=== PATIENT | female | born 1955 | race Caucasian/White ===

== ENCOUNTER 2020-10-11 22:39 | Emergency (ER) | payer MEDICARE ==
--- NOTE | 2020-10-11 22:43 | ERPHSYRPT ---
- History of Present Illness Time Seen by Provider: 10/11/20 22:43 Source: patient, family Exam Limitations: no limitations Physician History: This is a 65-year-old obese white female who presents with asymptomatic high blood pressure. At home her blood pressure was 170/110. She repeated it and it was approximately the same level. She has had no symptoms. She did take an extra half of her blood pressure medicine benazepril prior to arrival. Again, this patient is asymptomatic. She has no chest pain. She denies shortness of breath. She has no visual changes. She denies headache. Timing/Duration: today, improved Associated Symptoms: denies symptoms Allergies/Adverse Reactions: Sulfa (Sulfonamide Antibiotics) Allergy (Severe, Verified 10/11/20 22:52) Swelling of Face codeine Adverse Reaction (Intermediate, Verified 10/11/20 22:52) Nausea and Vomiting Home Medications: Benazepril HCl 1 tab PO DAILY 10/11/20 [History] Travel Risk - International Travel Have you traveled outside of the country in past 3 weeks: No - Coronavirus Screening Are you exhibiting any of the following symptoms?: No Close contact with a COVID-19 positive Pt in past 14-21 Days: No - Vaccine Status Have you recieved a Covid-19 vaccination: No - Review of Systems Constitutional: No Symptoms Eyes: No Symptoms Ears, Nose, & Throat: No Symptoms Respiratory: No Symptoms Cardiac: No Symptoms Abdominal/Gastrointestinal: No Symptoms Genitourinary Symptoms: No Symptoms Musculoskeletal: No Symptoms Skin: No Symptoms Neurological: No Symptoms Psychological: No Symptoms Endocrine: No Symptoms Hematologic/Lymphatic: No Symptoms Immunological/Allergic: No Symptoms All Other Systems: Reviewed and Negative - Past Medical History Pertinent Past Medical History: Yes - Past Surgical History Past Surgical History: Yes - Nursing Vital Signs Nursing Vital Signs: Initial Vital Signs Temperature 98.5 F 10/11/20 22:39 Pulse Rate 85 10/11/20 22:39 Respiratory Rate 16 10/11/20 22:39 Blood Pressure 129/70 10/11/20 22:39 O2 Sat by Pulse Oximetry 98 10/11/20 22:39 Pain Scale Pain Intensity 0 - Physical Exam General Appearance: no apparent distress, alert, anxiety, obese Eye Exam: PERRL/EOMI, eyes nml inspection Ears, Nose, Throat Exam: normal ENT inspection, moist mucous membranes Neck Exam: normal inspection, non-tender, supple, full range of motion Respiratory Exam: normal breath sounds, chest tenderness, lungs clear, respiratory distress Cardiovascular Exam: regular rate/rhythm, normal heart sounds, normal peripheral pulses Gastrointestinal/Abdomen Exam: No tenderness Rectal Exam: not done Back Exam: normal inspection, normal range of motion, No CVA tenderness, No vertebral tenderness Extremity Exam: normal inspection, normal range of motion, pelvis stable Neurologic Exam: alert, oriented x 3, cooperative, certified medical records coder II-XII nml as tested, normal mood/affect, nml cerebellar function, nml station & gait, sensation nml Skin Exam: normal color, warm, dry Lymphatic Exam: No adenopathy SpO2 Interpretation: normal O2 Delivery: Room Air - Course Nursing assessment & vital signs reviewed: Yes - Progress Progress: improved Counseled pt/family regarding: diagnosis, need for follow-up, rad results - Departure Departure Disposition: Home Clinical Impression: Normotensive, Encounter for medical screening examination Condition: Stable Critical Care Time: No Referrals: NEDA SUERO [Primary Care Provider] - Additional Instructions: Monitor your blood pressure 3 times a day and keep a daily log. Call your primary care doctor/prescribing doctor on Wednesday, October 14, 2020 for further management of your blood pressure
[2020-10-11 23:39] VITALS: BP 116/48; PULSE 74; O2SAT 97
== END 2020-10-11 23:54 | disposition home or self-care (01) ==
LOC: ED 22:39
DX: Z01.31 Encounter for examination of blood pressure with abnormal findings (principal); Z00.00 Encounter for general adult medical examination without abnormal findings
CPT/HCPCS: 99283

== ENCOUNTER 2023-01-08 06:13 | Day surgery (SDC) | payer MEDICARE ==
[2023-01-08 07:47] VITALS: RESP 18
[2023-01-08] MEDS ORDERED: Lactated Ringers 1,000 ML IV SCH (08:00)
[2023-01-08] MEDS ORDERED: DIPRIVAN 200 MG/20 ML IV ONE ×2 (08:06→08:17)
[2023-01-08] MEDS ORDERED: Versed 2 MG/2 ML Injection ONE (08:06)
--- NOTE | 2023-01-08 08:51 | OP ---
SURGERY DATE/TIME: 01/08/2023 0805 PREOPERATIVE DIAGNOSIS: Screening exam. POSTOPERATIVE DIAGNOSIS: Normal colon. PROCEDURE: Colonoscopy. SURGEON: Dr. Mckeon. ANESTHESIA: MAC. Medications given by anesthesia department. HISTORY: The patient is a 68-year-old white female presenting now for colonoscopic evaluation. The patient reports she had polyps removed approximately eight years ago. The patient now presents for screening examination. She is having no problems. The patient was appraised of the risks of the procedure including the risk of perforation, phlebitis, untoward reaction to medication, bleeding and missed lesions. The patient verbalized her understanding and desired to have the procedure performed. DESCRIPTION OF PROCEDURE: The patient was given the medications by the anesthesia department. She had continuous pulse oximetry, ECG monitoring, intermittent blood pressure monitoring and tidal CO2 monitoring during the examination. She was placed in the left lateral decubitus position. A digital rectal examination was performed and revealed normal anal sphincter tone and no masses. The flexible Olympus pediatric colonoscope was used to intubate the rectum. A view of the colon was developed sequentially to the cecum. Upon insertion and withdrawal, including a retroflex view in the rectum, no mucosal lesions were encountered. The scope was removed from the patient who tolerated the procedure well and was sent back to OP recovery in good condition. The prep was noted to be fair to good.
[2023-01-08 09:00] VITALS: TEMP 97.6
[2023-01-08 09:05] VITALS: O2SAT 100
[2023-01-08 09:18] VITALS: BP 142/75; PULSE 80
== END 2023-01-08 09:20 | disposition home or self-care (01) ==
LOC: SDC 06:13
PROVIDERS: ATTEND Family Medicine
DX: Z12.11 Encounter for screening for malignant neoplasm of colon (principal)
CPT/HCPCS: J2250; J2704